=== PATIENT | male | born 1975 | race Hispanic/Latino ===

== ENCOUNTER 2017-12-26 00:24 | Emergency (ER) | payer SELFPAY ==
[~2017-12-26] VITALS: Ht 172.7 cm; Wt 85.3 kg
[~2017-12-26 00:24] MED LIST: GLUCOTROL5 MG PO; METFORMIN HCL500 MG PO; PEPCID20 MG PO
== END 2017-12-26 00:48 | disposition home or self-care (01) ==
LOC: ER 00:24
DX: E11.65 Type 2 diabetes mellitus with hyperglycemia (principal)
CPT/HCPCS: 36415; 82948; 93005; 99283

== ENCOUNTER 2022-02-01 23:27 | Emergency (ER) | payer SELFPAY ==
[~2022-02-01] VITALS: Ht 172.7 cm; Wt 85.3 kg
[2022-02-01 23:46] LABS: BASOPHILS # (AUTO) 0.1 (0.0-0.1); BASOPHILS % 0.6 % (0.0-1.0); EOSINOPHILS # (AUTO) 0.7 (0.0-0.4); EOSINOPHILS % 7.9 % (0.0-6.0); HEMATOCRIT 43.3 % (38.2-49.6); HEMOGLOBIN 14.3 g/dL (14.0-18.0); LYMPHOCYTES # (AUTO) 3.3 (1.0-3.2); LYMPHOCYTES % 40.2 % (18.0-39.1); MEAN CORPUSCULAR HEMOGLOBIN 30.6 pg (28-32); MEAN CORPUSCULAR VOLUME 92.5 fL (81-99); MONOCYTES # (AUTO) 0.5 (0.2-0.8); MONOCYTES % 6.3 % (4.4-11.3); NEUTROPHILS # (AUTO) 3.7 (2.1-6.9); NEUTROPHILS % 44.8 % (38.7-80.0); PLATELET COUNT 260 x10e3/uL (140-360); RED BLOOD COUNT 4.68 x10e6/uL (4.3-5.7); RED CELL DISTRIBUTION WIDTH 12.1 % (11.7-14.4)
[2022-02-02 00:04] LABS: ANION GAP 18.7 mmol/L (8-16); CREATININE, SERUM 0.87 mg/dL (0.72-1.25); POTASSIUM 3.7 mmol/L (3.5-5.1)
[2022-02-02] MEDS ORDERED: METFORMIN HCL500 MG PO (00:52)
== END 2022-02-02 01:01 | disposition home or self-care (01) ==
LOC: ER 23:30
DX: E11.65 Type 2 diabetes mellitus with hyperglycemia (principal); E11.40 Type 2 diabetes mellitus with diabetic neuropathy, unspecified; Z91.14 Patient's other noncompliance with medication regimen
CPT/HCPCS: 36415; 80048; 85025; 99283